=== PATIENT | female | born 1975 | race Caucasian/White ===

== ENCOUNTER 2016-07-08 09:00 | Observation (INO) | payer OTHER ==
[~2016-07-08] VITALS: Ht 160 cm; Wt 67.6 kg
--- NOTE | ~2016-07-08 | CON ---
PATIENT'S NAME: BAKARI AC [facility] AGE: 40 Y [address] ROOM: [place] [address] LOCATION: [facility] ADMIT DATE: 07/08/2016 Consultation DISCHARGE DATE: FAMILY PHYSICIAN: BAKARI QUIÑONES MD ATTENDING PHYSICIAN: BAKARI QUIÑONES REFERRING PHYSICIAN: Berna Murray MD CONSULT REQUESTED BY: Bakari Quiñones MD REASON FOR CONSULTATION: Brain tumor. PATIENT IDENTIFICATION: Bakari Ac is a 40-year-old female. PRESENTING COMPLAINT: Headache. HISTORY OF PRESENT ILLNESS: The patient started having headache two or three days ago. The headache involved the entire head. The patient has also been unsteady on her feet and has some nausea, but no vomiting. The patient was seen by Dr. Gasca and had MRI of the brain. She is known to have meningioma, see below. The MRI showed a midline posterior parietal mass consistent with meningioma. On account of the patient's headache and altered level of consciousness, she was admitted to the hospital and I was consulted to see her. PAST MEDICAL HISTORY: The patient has had surgery for this meningioma on two previous occasions. The first one was about around 2003, next one was around 2008, and she also had radiation therapy. She has had normal MRI scans which have shown the meningioma to be stable until the onset of this headache. The MRI that she had today shows that the tumor has not changed very much in size. 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 FAMILY HISTORY: There is no family history relevant to present problems. SOCIAL HISTORY: The patient lives in the house. She does do some daycare work, taking care of two babies. PATIENT'S NAME: BAKARI AC [facility] AGE: 40 Y [address] ROOM: [address] [address] LOCATION: [facility] ADMIT DATE: 07/08/2016 Consultation DISCHARGE DATE: FAMILY PHYSICIAN: BAKARI QUIÑONES MD ATTENDING PHYSICIAN: BAKARI QUIÑONES REVIEW OF SYSTEMS: A 10-point review of systems was carried out. The abnormal findings include the headache and blurred vision as well as nausea, vomiting, and unsteadiness. PHYSICAL EXAMINATION: GENERAL: On examination, the patient is a young female, who is in a fair amount of distress from the headache when I saw her. VITAL SIGNS: Blood pressure is 112/58, pulse rate is 102. NEUROLOGIC: The patient is drowsy, but arousable. She follows commands. Cranial nerves: The patient has reduction in her visual kasper bilaterally. She is unable to perceive objects in her peripheral vision bilaterally in the temporal area. She also says that when she is walking if she does not tilt her head down, she is unable to look down and see objects on the floor and would walk into them. There is no facial asymmetry. Motor examination: The patient has a slight right pronator drift. She also tends to lean over to the right side when sitting or trying to walk. Strength: The patient has normal strength in her upper and lower extremities bilaterally. Reflexes are significantly increased, particularly on the right side. She has bilateral ankle clonus sustained on the right side. Toes: Toes are neither up nor downgoing. Gait: The patient was able to stand and take a few steps by herself, but she was very unsteady when she tried to walk and would lean on the field technical assistant trying to help her. HEAD: Her head is atraumatic. EYES AND EARS: No evidence of trauma. SKIN: No skin rashes or skin masses. EXTREMITIES: No cyanosis or clubbing. CARDIOVASCULAR SYSTEM: Heart sounds present. RESPIRATORY SYSTEM: The patient is not short of breath at bedside. REVIEW OF IMAGING STUDIES: The patient has had brain MRI performed today. The radiological impression is large posterior cerebral mass, likely representing a meningioma. Imaging characteristics favor a malignant rather than a benign meningioma. The mass has mildly increased in size since imaging done on September 15, 2015. There is severe vasogenic edema within the bilateral parietal and bilateral occipital lobes. There is also some focal mass effect on the parietal and occipital lobes. On arrival here, we performed a CT angiogram to check for patency of the patient's sinuses. 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 The thrombosis extends into both the right and left transverse sinuses. IMPRESSION: A 40-year-old female with 2 or 3-day history of progressively worsening PATIENT'S NAME: BAKARI AC [facility] AGE: 40 Y [address] ROOM: [place] [address] LOCATION: [facility] ADMIT DATE: 07/08/2016 Consultation DISCHARGE DATE: FAMILY PHYSICIAN: BAKARI QUIÑONES MD ATTENDING PHYSICIAN: BAKARI QUIÑONES headaches associated with decreased level of consciousness, blurred vision, and some nausea. Imaging studies show a large midline parieto-occipital meningioma with associated thrombosis of both the superior sagittal as well as transverse sinuses. MEDICAL DECISION MAKING: I discussed the situation with the patient and the significant other. For now, we have started the patient with anticoagulation using heparin. We also considered interventional radiological treatment for the transverse sinus thrombosis given its severity. I did discuss with Dr. Heladio Maxwell, neurosurgeon at the [facility], and he has kindly accepted the patient in transfer. I also spoke with Dr. Quiñones, the patient's primary care physician, and he is on board with transferring the patient. We will expedite the transfer to the [facility] for the possibility of interventional treatment if the need arises. I will continue the patient with heparin protocol in the meantime. CURRENT MEDICATIONS: Please see the patient's chart. ALLERGIES: SHE IS ALLERGIC TO OMNICEF AND LATEX. MD LUPIS ROMANO/modl /[id number] CC: MD Rubia Gay MD d: 07/08/16 2220 t: 07/11/16 0834, CONSULTATION REPORT
--- NOTE | ~2016-07-08 | HP ---
PATIENT'S NAME: BAKARI [facility] AGE: 40 Y [address] ROOM: [place] [address] LOCATION: [facility] ADMIT DATE: 07/08/2016 History & Physical DISCHARGE DATE: FAMILY PHYSICIAN: BAKARI OCHOA MD ATTENDING PHYSICIAN: BAKARI OCHOA DATE OF SERVICE: CHIEF COMPLAINT: Headache. HISTORY OF PRESENT ILLNESS: Bakari is a -eapi-aus white female with known tumor/mass in her brain that has been followed after surgery for years now by Dr. Cordoba, neurosurgeon. In the last several months, she had a scan of her head that showed that this mass was stable. However, today she has developed a severe headache, that was new and unresponsive to the outpatient measures, so she presented to the emergency room in [facility]. She was evaluated there by the emergency room staff/physician and nurses. She was found to have an MRI showing a mass in her brain of fairly good size and there was perhaps some fluid around this area in the midline shift that was a change from prior MRI of the head. She is followed by Dr. Cordoba our neurosurgeon and I called him and in fact on cell phone today, he relates that he is "out of town." There were no other neurosurgeons on staff out at [facility], so I opted to have the patient admitted to [facility] or we can get a Neurology consult and a neurosurgical consult today. We will ask Dr. Aguilera the neurologist to see the patient here and Dr. Murray, the neurosurgeon on-call to see her also, and review her scans and give his ideas about further evaluation and treatment. I see the patient over the lunch hour in the day of admission, her and her mom were present for the interview. She is sedated now with the morphine for her headache, states she still has a bit of a headache, but is, knows me and knows where she is at. MEDICATIONS: Her medications are reviewed. ALLERGIES: HER ALLERGIES ARE NOTED. PATIENT'S NAME: BAKARI NORMAN [facility] AGE: 40 Y [address] ROOM: [place] [address] LOCATION: [facility] ADMIT DATE: 07/08/2016 History & Physical DISCHARGE DATE: FAMILY PHYSICIAN: BAKARI OCHOA MD ATTENDING PHYSICIAN: BAKARI OCHOA PAST SURGICAL HISTORY: Her previous operations are noted as above. SOCIAL HISTORY: She does not smoke. FAMILY HISTORY: Her family history is noncontributory. REVIEW OF SYSTEMS: HEENT: She has had no yan visual changes. She has had a headache, she has had no sore throat. NECK: She has had no soreness in her neck or stiff neck. LUNGS: No history of asthma. HEART: No history recent hypertension or chest pain or previous DE. GI: No nausea or vomiting. : No dysuria or frequency. EXTREMITIES AND NEUROLOGIC: As above. MENTAL STATUS: History of anxiety in the past. Currently quiescent. PHYSICAL EXAMINATION: VITAL SIGNS: Per nurse's notes. GENERAL: She is a sedated, reddish blunt female, lying in bed on her left side. HEENT: Shows no deformity about the skull. Her pupils do react to light. Her posterior pharynx is clear. Her neck is unremarkable. Her lungs are clear without wheeze or rub. HEART: Shows no murmur, gallop, or rub. ABDOMEN: Soft. EXTREMITIES: Show no edema. Pulses full throughout. NEUROLOGIC: Shows cranial nerves intact. I did not do a visual field exam. She has no yan focal abnormality on exam, when I see her. ASSESSMENT: 1. Severe headache. 2. Brain mass with mild change per radiologist on MRI with mild midline shift. PLAN: As above. BAKARI OCHOA MD PATIENT'S NAME: BAKARI NORMAN [facility] AGE: 40 Y [address] ROOM: [place] [address] LOCATION: [facility] ADMIT DATE: 07/08/2016 History & Physical DISCHARGE DATE: FAMILY PHYSICIAN: BAKARI OCHOA MD ATTENDING PHYSICIAN: BAKARI OCHOA TELECOM MANAGER/modl /[id number] 11 25 HISTORY & PHYSICAL
--- NOTE | ~2016-07-08 | CON ---
PATIENT'S NAME: BAKARI NORMAN [facility] AGE: 40 Y [address] ROOM: [id number] [place], [place] [address] LOCATION: [facility] ADMIT DATE: 07/08/2016 Consultation DISCHARGE DATE: FAMILY PHYSICIAN: BAKARI QUIÑONES MD ATTENDING PHYSICIAN: BAKARI QUIÑONES DATE OF CONSULTATION: 07/08/2016 REFERRING PHYSICIAN: Berna Murray MD NEUROLOGICAL CONSULTATION DATE AND TIME: 07/08/2016 at 4:15 p.m. REASON FOR CONSULTATION: Headache. HISTORY OF PRESENT ILLNESS: This is a 40-year-old female, who has a long history of recurrent meningiomas. In 2003, she presented with dizziness and Dr. Cordoba removed a meningioma at that time, using a Stealth craniotomy system in the right parieto-occipital region. The patient did well until 2009, when again she had a meningioma excised by Dr. Cordoba. She had been following with yearly MRIs or CTs. Her latest CT that we have access to is in September 2015 which showed the brain to be in a stable state. A couple of weeks ago, she has had been having issues with her vision, but she did not seek medical care until two days ago, when her headache became more than she can handle. She presented to [facility] with a headache rated at 10/10. One of the studies there was an MRI with and without contrast. It showed a large extra-axial mass involving the posterior parasagittal region between the frontal, parietal, and occipital lobes extending from the vertex to just above the tentorium cerebelli. This mass measures 5.9 in the AP diameter by 4.0 cm in the transverse diameter by 5.8 cm in the craniocaudal diameter. There was diffuse enhancement of the mass post IV contrast administration and it completely encompasses the sagittal sinus and likely occludes the sagittal sinus in this region. It also extends posteriorly into the subcutaneous tissues. The posterior aspect of the parietal bone was surgically absent. There were also separate 12 x 7 mm extra- axial lesions in the left frontal region that were suspicious for meningioma, both of these were enhanced following IV contrast. Severe diffuse signal abnormality involving the white matter of the frontal lobe at the vertex extending in the parietal and occipital lobes which appears to be encephalomalacia likely secondary to previous radiation therapy, correlate clinically. Actually she did have radiation therapy after her second surgery. There does not appear to be vasogenic edema as there was no mass effect on the lateral ventricles. With the findings of this MRI, she was transferred to PATIENT'S NAME: BAKARI NORMAN [facility] AGE: 40 Y [address] ROOM: [address] [address] LOCATION: [facility] ADMIT DATE: 07/08/2016 Consultation DISCHARGE DATE: FAMILY PHYSICIAN: BAKARI QUIÑONES MD ATTENDING PHYSICIAN: BAKARI QUIÑONES [facility] for further evaluation and possible surgery. PAST MEDICAL HISTORY: Her prior medical history includes a cholecystectomy, two pregnancies. CURRENT MEDICATIONS: The patient does not take any medications routinely. ALLERGIES: SHE IS ALLERGIC TO SULFA DRUGS. SOCIAL HISTORY: The patient is . 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 She does not smoke or drink alcohol or have any illicit habits. FAMILY HISTORY: Unable to be obtained at this time. The patient is too drowsy to respond. REVIEW OF SYSTEMS: CONSTITUTIONAL: The patient appears sleepy and states her pain in her head is 10/10 all over. Her family states she has not been eating or drinking and has had some nausea related to this, but no vomiting. They deny any skin rashes or bumps. Deny any recent illnesses. The patient states she prefers the room to be dark and quiet. RESPIRATORY: No respiratory issues with shortness of breath or cough. No recent illnesses. CHEST: No chest pain, palpitations, or murmurs. GASTROINTESTINAL: No diarrhea or heartburn. Just the nausea, but no vomiting. No change in bowel habits. GENITOURINARY: She has been able to void without difficulty, although she is slightly dehydrated from not having much fluid intake. NEUROLOGIC: She states her vision is excessively decreased. She is weak from the pain she states. PHYSICAL EXAMINATION: VITAL SIGNS: She is afebrile. Her heart rate is 92, respirations 18, blood pressure is 132/78, and pain is 10/10 all over her head. GENERAL: She is lying in bed with her eyes closed and needs encouragement to participate in the exam. HEENT: Her head is almost microcephalic, but it is atraumatic. The conjunctivae are normal. NECK: Supple with no carotid bruits. CARDIOVASCULAR: Normal S1 and S2 with no murmurs, rubs, or gallops. PULMONARY: Clear to auscultation. ABDOMEN: Soft and nontender. PATIENT'S NAME: BAKARI NORMAN [facility] AGE: 40 Y [address] ROOM: [id number] [place], [place] [address] LOCATION: [facility] ADMIT DATE: 07/08/2016 Consultation DISCHARGE DATE: FAMILY PHYSICIAN: BAKARI QUIÑONES MD ATTENDING PHYSICIAN: BAKARI QUIÑONES EXTREMITIES: No clubbing, no cyanosis, and no edema. MENTAL STATUS: Her orientation is alert and oriented x3. Her language is slow but appropriate. She knows where she is, but she does not know the year or the date. Cranial nerves 2 through 12 are intact except as follows; the patient is unable to look to her right with her pupils. She states she has no vision over there. Her vision is diminished from her first surgery from about 30 degrees and downward, however, her new vision changes include upward vision and also to the right. She is able to see directly in front of her left eye in a field of about 18 inches and that is all. She could not read the stroke scale words in a complete sentence. She can only see one or two of the words. Motor: Her tone is normal. Her reflexes are 4/5 in the biceps, triceps, and patellar area. She does have a slight right pronator drift. She does have clonus to bilateral legs. Sensory is intact to temperature and vibration, and proprioception throughout. Her [id number] test was not completed, however, she did stand. Actually she had no problems with any ataxia with her gait, however, she had a shuffling gait. Romberg was not completed. LABORATORY DATA AND IMAGING STUDIES: Laboratories are pending at this time. Studies include the MRI as listed in the HPI. ASSESSMENT: This patient has a recurrence of a possible meningioma. Because of the area of the meningioma, a sinus thrombosis must be ruled out before any surgery can be planned. I saw the patient in conjunction with Dr. Murray and discussed the plan of care. The plan of care was also called to Dr. Quiñones. The plan will include: 1. Get a CTA to look at the venous thrombosis possibility. Of note, in 2009, she did have a slight venous thrombosis in that MRI. 2. Hydrate with 75 mL of saline per hour. 3. Mannitol for cerebral edema now and q.8 hours. We will get an osmo for baseline now to monitor. 4. Because of the patient's drowsiness and the mannitol, we will put a Marie in. 5. We will include Keppra 500 mg IV b.i.d. for seizure prophylaxis due to the size of the tumor. Thank you for this very interesting consult. The consult was completed in conjunction with Dr. Aguilera. Significant time was spent discussing the care with Dr. Murray and Dr. Quiñones. The plan of care was discussed with the family and questions were answered to the best of our abilities. Obviously, further plan of care will depend on the CTA results. Thank you for this very interesting consultation. We will certainly follow along with you. PATIENT'S NAME: BAKARI NORMAN [facility] AGE: 40 Y [address] ROOM: [place] [address] LOCATION: [facility] ADMIT DATE: 07/08/2016 Consultation DISCHARGE DATE: FAMILY PHYSICIAN: BAKARI QUIÑONES MD ATTENDING PHYSICIAN: BAKARI QUIÑONES ADDY FAUST APRN FOR SANTY AGUILERA MD PP/brandil /[id number] d: 07/08/162229 t: 07/12/16 1613, CONSULTATION REPORT
[2016-07-08] MEDS ORDERED: CELEXA10 MG PO (10:27)
[2016-07-08] MEDS ORDERED: ALEVE220 MG PO (10:27)
[2016-07-08] MEDS ORDERED: WELLBUTRIN XL150 M1 PO (10:27)
[2016-07-08] MEDS ORDERED: PROBIOTIC1 EAC2 PO (10:28)
[2016-07-08] MEDS ORDERED: ADVIL200 MG PO (10:28)
[2016-07-08] MEDS ORDERED: THERA-VITE W/ B1 TAB PO (10:28)
[2016-07-08] MEDS ORDERED: ALLEGRA180 MG PO (10:28)
[2016-07-08] MEDS ORDERED: NASACORT16.9 ML NOSE (10:29)
--- NOTE | 2016-07-08 10:41 | NUR ---
Pt is 40 y/o female admit for hemangioma,headaches for . PT alert and oriented x3. Allergies to Latex,Omnicef,Sulfa. Red and yellow bracelets on. Hx benign brain tumor removed x2,vertigo,dizziness,balance problems, headaches,palpitations,leukemia at 2 yrs old-in remission,basal cell ca on back and face removed,anxiety,depression,gerd,heartburn,L)eye blurry and L) ear rings at times. Resides at home with her . Came from [facility] this am via ambulance. Family at bedside. Pt c/o moderate to severe headache. Rates at 10/10. Working to obtain orders from
[2016-07-08 15:38] LABS: BASOPHIL % 0.2 %; EOSINOPHIL % 0.2 %; HEMATOCRIT 37.2 % (33.0-46.0); HEMOGLOBIN 12.5 g/dL (10.0-15.0); IMMATURE GRANULOCYTE % 0.3 %; LYMPHOCYTE # 1.1 K/uL (0.8-4.0); LYMPHOCYTE % 12.3 %; MCH 29.8 pg (27.0-34.0); MCHC 33.6 gm/dL (32.0-36.5); MCV 88.6 fl (83.0-98.0); MONOCYTE # 0.4 K/uL (0.0-1.0); MONOCYTE % 4.5 %; MPV 9.6 fl (9.4-12.4); NEUTROPHIL # (ANC) 7.2 K/uL (1.8-7.8); NEUTROPHIL % 82.5 %; NRBC % 0 /100WBC (0-0.00); PLATELET COUNT 175 K/uL (150-450); RDW-CV 12.9 % (11.9-14.6); WBC 8.8 K/uL (4.0-11.0)
[2016-07-08 15:52] LABS: ALBUMIN 3.4 gm/dL (3.5-5.0); ANION GAP 11.7 (10.0-19.0); BLOOD UREA NITROGEN 6 mg/dL (6-24); CALCIUM 7.8 mg/dL (8.5-10.5); CHLORIDE 106 mMol/L (96-110); CO2 25 mMol/L (22-32); CREATININE 0.6 mg/dL (0.5-1.1); PHOSPHORUS 2.8 mg/dL (2.5-4.9); POTASSIUM 3.7 mMol/L (3.7-5.1); SODIUM 139 mMol/L (135-145)
[2016-07-08 15:58] LABS: ESTIMATED GFR (MDRD EQUATION) > 60
--- NOTE | 2016-07-08 17:21 | NUR ---
Significant Event: Patient is alert and oriented x3. VSS on RA. PERRLA-4.0. Numbness to the right side of her body. right side is slightly weaker that the left. Vision issues- see neuro assessment. Patient states as if she feels the right arm is difficult to control. PIV to right wrist. IV mannitol and keppra. NS at 75 ml/hr. Ambulates unsteady. 1 assist, GB and walker. Pleasant and cooperative with cares- family at bedside. Follow up:
[2016-07-08 21:09] LABS: HEMATOCRIT 41.5 % (33.0-46.0); HEMOGLOBIN 13.9 g/dL (10.0-15.0); IMMATURE GRANULOCYTE # 0.1 K/uL (0.0-0.3); IMMATURE GRANULOCYTE % 0.5 %; LYMPHOCYTE # 0.8 K/uL (0.8-4.0); LYMPHOCYTE % 8.7 %; MCH 29.9 pg (27.0-34.0); MCHC 33.5 gm/dL (32.0-36.5); MCV 89.2 fl (83.0-98.0); MONOCYTE # 0.1 K/uL (0.0-1.0); MONOCYTE % 0.6 %; NEUTROPHIL # (ANC) 8.4 K/uL (1.8-7.8); NEUTROPHIL % 90.2 %; NRBC % 0 /100WBC (0-0.00); PLATELET COUNT 202 K/uL (150-450); RBC 4.65 M/uL (3.50-5.50); WBC 9.3 K/uL (4.0-11.0)
[2016-07-08 21:39] LABS: PROTIME 10.4 SECONDS (9.6-11.1)
--- NOTE | 2016-07-09 00:36 | NUR ---
THE PATIENT IS ALERT AND ORIENTED X2, FORGETFUL OF TIME. NUMBNESS AND TINGLING TO RIGHT ARM. MOVES ALL EXTREMITIES SPONTANEOUSLY AND TO COMMAND. UP WITH 1 ASSIST, GAITBELT-HANDS ON, SHE IS UNSTEADY. VSS, ON ROOM AIR. COMPLAINTS OF GENERALIZED HEADACHE GAVE MOTRIN AT 1914, AND MORPHINE AT 2041. HEPARIN GTT STARTED AT 2132 ALSO GAVE A 4000 UNIT BOLUS IV. PATIENT IS ON MANNITOL BID. COMPLAINTS OF SOME BLURRED VISION WHICH SHE SAYS IMPROVED SOME ON MY SECOND ASSESSMENT. PUPILS ARE 4MM AND BRISK. PIV TO THE RIGHT WRIST INFUSING MANNITOL. PIV TO THE LEFT WRIST INFUSING NS AT 75ML/HR AND THE HEPARIN GTT AT 800 UNITS/HR. NEXT PTTHP WILL BE AT 0330. REGULAR DIET-DECREASED APPETITE. THE PATIENT IS BEDREST WITH BATHROOM PRIVILEGES.
--- NOTE | 2016-07-09 06:38 | NUR ---
Significant Event: Pt is alert and orinted to self and place, did not know month or year. Pupils are equal and reactive. Moves all extremities spontaneously and to command. Denies any numbness or tingling. Has had a headache throughout this shift. Vision is blurry. Ambulates with a 1 assist and needs verble queing when up. Bedrest with bathroom privleges. On a heparin gtt, next ptthp at 1030. Follow up: Continue to monitor neuro status.
--- NOTE | 2016-07-09 19:32 | NUR ---
Significant Event: Patient was A&O to person and place, disoriented to time. Pupils were equal and reactive. Patient had weakness in right leg. By the end of my shift patient was unable to support herself to sit on edge of bed and could not support her weight to stand to the commode. Patient stated her body felt like a noodle. Patient couldn't see out of either of her eyes. SBP have been mid 90's-low 100's, MAP's 60's-70's, HR 60's-80's. Patient was on RA with o2 sats mid to upper 90's, RR have been teens. Lung sounds are clear and diminished. Patient had 1250ml out in urine. Follow up:
== END 2016-07-09 19:04 | disposition other institution (70) ==
LOC: EDSTATUS 09:00 → GNTU 09:55 → GICU 07-09 00:05
PROVIDERS: Neurological Surgery; Nurse Practitioner Family; ADMIT Family Medicine
DX: R51 Headache (principal); G93.9 Disorder of brain, unspecified; Z86.011 Personal history of benign neoplasm of the brain; Z91.040 Latex allergy status; Z88.2 Allergy status to sulfonamides; Z88.1 Allergy status to other antibiotic agents; Z90.49 Acquired absence of other specified parts of digestive tract; Z79.01 Long term (current) use of anticoagulants; Z79.1 Long term (current) use of non-steroidal anti-inflammatories (NSAID); Z79.899 Other long term (current) drug therapy
CPT/HCPCS: G0378; G0379; J1100; J1644; J1953; J2270; J7030; J7040; J7050; Q9967

== ENCOUNTER → 2016-07-09 | Outpatient (CLI) | payer OTHER ==
[~2016-07-09] MED LIST: ADVIL200 MG PO; ALEVE220 MG PO; ALLEGRA180 MG PO; CELEXA10 MG PO; NASACORT16.9 ML NOSE; PROBIOTIC1 EAC2 PO; THERA-VITE W/ B1 TAB PO; WELLBUTRIN XL150 M1 PO
== END | disposition disaster alternative care site (69) ==
LOC: GAIR 19:13
DX: R41.82 Altered mental status, unspecified (principal); D32.0 Benign neoplasm of cerebral meninges; H54.7 Unspecified visual loss; E78.6 Lipoprotein deficiency; F32.9 Major depressive disorder, single episode, unspecified; R42 Dizziness and giddiness; Z79.1 Long term (current) use of non-steroidal anti-inflammatories (NSAID); Z79.899 Other long term (current) drug therapy; Z88.1 Allergy status to other antibiotic agents; Z91.040 Latex allergy status
CPT/HCPCS: A0422; A0431; A0436

== ENCOUNTER 2016-09-14 08:16 | Emergency (ER) | payer OTHER ==
--- NOTE | ~2016-09-14 | ER ---
PATIENT'S NAME: BAKARI NORMAN [facility] AGE: 40 Y [address] ROOM: [place] [id number] LOCATION: ED ADMIT DATE: 09/14/2016 ER/Outpatient Report DISCHARGE DATE: 09/14/2016 FAMILY PHYSICIAN: Jeancarlos Quiñones MD ATTENDING PHYSICIAN: Oscar Toro CHIEF COMPLAINT: Headache with nausea. HISTORY OF PRESENT ILLNESS: The patient has a history of posterior meningioma status post partial resection which was complicated by dural venous sinus thrombosis approximately two months ago. Attempts at treatment for that issue in [place] at [facility] were complicated by intracranial hemorrhage after catheter directed thrombolysis. She did have a craniectomy for clot evacuation, and has some residual deficit of lower quadrantanopia bilaterally and some persistent headaches. She has been following with Dr. Cordoba, but has not been taking any steroids. She denies any other new symptoms up until about 4 o'clock this morning when the headache got significantly worse. She was able to take an oxycodone which helps some, but then her symptoms continued to get worse. She denies any new symptoms, but there is worsening of her quadrantanopia. She also has some nausea, but denies any vomiting. She declines any pain or nausea medication at this time. PAST MEDICAL HISTORY: Documented in the record and reviewed by me. SOCIAL HISTORY: Documented in the record and reviewed by me. MEDICATIONS: Documented in the record and reviewed by me. ALLERGIES: DOCUMENTED IN THE RECORD AND REVIEWED BY ME. REVIEW OF SYSTEMS: All systems reviewed and negative except as noted in the HPI. PHYSICAL EXAMINATION: VITAL SIGNS: Blood pressure 110/59, pulse 86, respiratory rate is 20, temperature 96.7, and SpO2 is 98% on room air. Pain is 8/10. GENERAL: Age-appropriate female with frail appearance, sitting upright on the exam table, in no obvious pain or distress. NEUROLOGIC: The patient is awake. She has diminished vision in her left PATIENT'S NAME: BAKARI NORMAN [facility] AGE: 40 Y [address] ROOM: [place], [place] [address] LOCATION: ED ADMIT DATE: 09/14/2016 ER/Outpatient Report DISCHARGE DATE: 09/14/2016 FAMILY PHYSICIAN: Jeancarlos Quiñones MD ATTENDING PHYSICIAN: Oscar Toro lower quadrant on exam. Otherwise, vision is grossly intact. The patient has no obvious other neurological deficits. No other asymmetry appreciable on exam. HEENT: The patient's previous surgical sites are noted and appear to be intact, otherwise, grossly normal. Eyes are otherwise PERRL. NECK: Supple. Trachea is midline. CHEST: Heart is regular rate and rhythm with no murmurs. LUNGS: Clear to auscultation bilaterally. ABDOMEN: Soft, nontender, and nondistended. No rebound or guarding. SPINE: Back is normal to inspection and palpation. EXTREMITIES: Warm and well perfused. SKIN: Warm, dry, and intact. LABORATORY DATA: Labs and X-rays: Procalcitonin is below threshold. CMS is without abnormality. CBC is normal. INR is 0.96. Lactate is 1.5. CBC is without abnormality. IMAGING STUDIES: X-rays, head CT, with some edema at the posterior aspects with no acute hemorrhage. IMPRESSION: Localized edema in the setting of meningioma and recent intracranial hemorrhage, and known dural venous sinus thrombosis. EMERGENCY DEPARTMENT COURSE: The patient was seen and evaluated as above. Overall, she appears well. She declined any pain medication or nausea medication at this time. I did discuss the case with Dr. Cordoba, the patient's preferred neurosurgeon. He is recommending no further imaging at this time. The patient will be given Decadron q.i.d. and some Pepcid today. She is to follow up with Dr. Cordoba in the office tomorrow, and will return immediately if there are any worse. All questions were answered. The patient was discharged after receiving Decadron and famotidine, a prescription was given. DISPOSITION: Discharged. MD RICA BRICE/liliana PATIENT'S NAME: BAKARI NORMAN [facility] AGE: 40 Y [address] ROOM: [place], [place] [address] LOCATION: ED ADMIT DATE: 09/14/2016 ER/Outpatient Report DISCHARGE DATE: 09/14/2016 FAMILY PHYSICIAN: Jeancarlos Quiñones MD ATTENDING PHYSICIAN: Oscar Toro /[id number] d: 09/14/16 1741 t: 09/21/16 0903, OUTPATIENT REPORT
[2016-09-14 09:14] LABS: BASOPHIL % 0.2 %; EOSINOPHIL # 0.1 K/uL (0.0-0.5); EOSINOPHIL % 0.7 %; HEMATOCRIT 36.9 % (33.0-46.0); HEMOGLOBIN 12.4 g/dL (10.0-15.0); IMMATURE GRANULOCYTE % 0.2 %; LYMPHOCYTE # 1.5 K/uL (0.8-4.0); LYMPHOCYTE % 17.7 %; MCH 29.4 pg (27.0-34.0); MCHC 33.6 gm/dL (32.0-36.5); MCV 87.4 fl (83.0-98.0); MONOCYTE # 0.4 K/uL (0.0-1.0); MONOCYTE % 4.6 %; MPV 9.8 fl (9.4-12.4); NEUTROPHIL # (ANC) 6.3 K/uL (1.8-7.8); NEUTROPHIL % 76.6 %; NRBC % 0 /100WBC (0-0.00); PLATELET COUNT 171 K/uL (150-450); RBC 4.22 M/uL (3.50-5.50); RDW-CV 12.9 % (11.9-14.6); WBC 8.2 K/uL (4.0-11.0)
[2016-09-14 09:29] LABS: INR - (THERAPEUTIC) 0.96 (0.92-1.07); PROTIME 10.1 SECONDS (9.8-11.4); PTT 29 SECONDS (25-32)
[2016-09-14 09:38] LABS: ALBUMIN 3.9 gm/dL (3.5-5.0); ALK PHOS 61 IU/L (33-138); ALT 23 IU/L (12-78); ANION GAP 12.8 (10.0-19.0); AST 20 IU/L (10-40); BLOOD UREA NITROGEN 8 mg/dL (6-24); CALCIUM 8.5 mg/dL (8.5-10.5); CHLORIDE 106 mMol/L (96-110); CO2 25 mMol/L (22-32); CREATININE 0.6 mg/dL (0.5-1.1); POTASSIUM 3.8 mMol/L (3.7-5.1); SODIUM 140 mMol/L (135-145); TOTAL BILIRUBIN 0.2 mg/dL (0.0-1.5); TOTAL PROTEIN 7.5 g/dL (6.0-8.4)
[2016-09-14 09:39] LABS: ESTIMATED GFR (MDRD EQUATION) > 60
== END 2016-09-14 10:21 | disposition disaster alternative care site (69) ==
LOC: GMED 08:16
PROVIDERS: Emergency Medicine
DX: R60.0 Localized edema (principal); G08 Intracranial and intraspinal phlebitis and thrombophlebitis; Z98.890 Other specified postprocedural states; Z88.2 Allergy status to sulfonamides; Z88.1 Allergy status to other antibiotic agents; Z79.899 Other long term (current) drug therapy; Z79.82 Long term (current) use of aspirin